=== PATIENT | male | born 1985 | race Caucasian/White ===

== ENCOUNTER 2017-03-15 15:13 | Emergency (ER) | payer MEDICAID ==
[~2017-03-15] VITALS: Ht 170.2 cm; Wt 106.6 kg
--- OUTSIDE RECORDS SUMMARY | 2017-03-15 15:26 | External Medical Summary Rpt | CCD ---
Author Author , ARNOLDO MCLAUGHLIN Address Unknown Phone [email or web address] Care Team Providers Care Psychological Examiner Name Role Phone [facility] CLI, TALON Unavailable Unavailable [facility], Unavailable Unavailable [facility] # Unavailable Unavailable 56, [facility] # 56 [facility], Unavailable Unavailable [facility] Unavailable Unavailable [id number] # 0334, [facility] [id number] # 0334 OCTAVIO Jolanta RODRIGUEZ DMD Unavailable Unavailable PSC, OCTAVIO Stover MICHAEL DMD PSC Purpose Continuity of Care Document - 09-04-2009 through 2016 Problems Code Diagnosis DOS Provider Status 2724 OTHER AND 07-24-2014 [facility] HYPERLIPIDE CHERIE 2859 UNSPECIFIED 07-24-2014 [facility] V0951 QUINOLONES- 07-24-2014 [facility] E-MULT RESIST MICROORGAN 92134 BORDERLINE 12-19-2013 [facility] GLAUC OPEN ANGLE BL FINDINGS LOW RSK V6751 F/U EXAM 03-15-2013 [facility] TX W/HIGH-RISK MED NEC 2449 UNSPECIFIED 01-25-2013 [facility] HYPOTHYROID ISM 01858 REFRACTIVE 09-09-2010 [facility] 29882 DENTAL 01-08-2010 OCTAVIO RODRIGUEZ DMD EXTENDING PSC INTO DENTINE 5252 ATROPHY OF 12-02-2009 OCTAVIO RODRIGUEZ DMD ALVEOLAR PSC RIDGE Medications Na ND Rx Da Fi Fi Am Da Di Ph RX Ph St me C No te ll ll ou ys ag ar # ys at rm s nt no ma ic us Or Da si cy ia de te s n re d FL 00 09 11 30 30 00 Ge Ac UO 09 -1 -0 .0 00 no ti XE 37 8- 3- 00 00 a, ve TI 19 20 20 14 a NE 80 17 17 83 5 99 Qo HC L L He 40 al th MG ca re CA PS Co UL mp E an y LL C LA 63 09 11 30 30 00 Ge Ac TU 40 -1 -0 .0 00 no ti DA 20 9- 3- 00 00 a, ve 30 20 20 14 a 80 83 17 17 83 0 97 Qo MG L He TA al BL th ET ca re Co mp an y LL C OH 00 09 10 30 30 00 HE Ac AV 09 -2 -2 .0 00 AL ti 37 6- 0- 00 06 TH ve TA 20 20 20 37 FI TI 11 17 17 50 RS N 0 54 T SO BL DI UE UM GR 20 S PH MG AR MA TA CY B NA 53 09 09 30 15 00 HE Ac OH 74 -0 -2 .0 00 AL ti OX 60 1- 9- 06 TH ve EN 19 20 20 37 FI 40 17 17 95 RS SO 1 52 T DI BL UM UE GR 55 0 S MG PH AR TA MA B CY OH 00 09 09 30 30 00 HE Ac OP 60 -0 -2 .0 00 AL ti RA 35 1- 9- 06 TH ve NO 48 20 20 37 FI LO 32 17 17 95 RS L 1 54 T 20 BL UE MG GR TA S BL PH ET AR MA CY FL 00 08 09 30 30 00 GE Ac UO 09 -1 -1 .0 00 NO ti XE 37 8- 5- 00 00 A ve TI 19 20 20 14 HE NE 80 17 17 69 AL 5 73 TH HC CA L RE 40 MG CA PS UL E OH 00 08 09 30 30 00 HE Ac AV 09 -1 -0 .0 00 AL ti 37 4- 8- 06 TH ve TA 20 20 20 37 FI TI 11 17 17 50 RS N 0 54 T SO BL DI UE UM GR 20 S PH MG AR MA TA CY B LA 63 07 08 30 30 00 GE Ac TU 40 -2 -2 .0 00 NO ti DA 20 7- 5- 00 00 A ve 30 20 20 14 HE 40 43 17 17 69 AL 0 69 TH MG CA RE TA BL ET FL 00 07 08 30 30 00 GE Ac UO 09 -1 -1 .0 00 NO ti XE 37 2- 1- 00 00 A ve TI 19 20 20 14 HE NE 80 17 17 48 AL 5 92 TH HC CA L RE 40 MG CA PS UL E GN 87 07 08 60 30 00 HE Ac P 70 -1 -1 .0 00 AL ti FI 10 8- 1- 00 06 TH ve SH 40 20 20 37 FI 81 17 17 50 RS OI 8 58 T L BL EC UE GR 1, 00 S 0 PH MG AR MA SF CY TG L FL 65 07 08 30 30 00 GE Ac UO 86 -1 -0 .0 00 NO ti XE 20 2- 4- 00 00 A ve TI 19 20 20 14 HE NE 39 17 17 48 AL 9 91 TH HC CA L RE 20 MG CA PS UL E OH 00 07 07 30 30 00 HE Ac AV 09 -0 -2 .0 00 AL ti 37 3- 8- 00 06 TH ve TA 20 20 20 37 FI TI 11 17 17 50 RS N 0 54 T SO BL DI UE UM GR 20 S PH MG AR MA TA CY B LA 63 06 07 30 30 00 GE Ac TU 40 -1 -0 .0 00 NO ti DA 20 3- 7- 00 00 A ve 30 20 20 14 HE 40 43 17 17 48 AL 0 93 TH MG CA RE TA BL ET FL 00 06 07 30 30 00 GE UO 09 -1 -0 .0 00 NO ti XE 37 3- 7- 00 00 A ve TI 19 20 20 14 HE NE 80 17 17 48 AL 5 92 TH HC CA L RE 40 MG CA PS UL E CE 68 05 06 28 7 00 KR Ac PH 18 -2 -2 .0 00 OG ti AL 00 7- 3- 00 06 ER ve EX 12 20 20 92 IN 20 17 17 03 PH 2 77 AR 50 MA 0 CY MG L- CA 35 PS 9 UL E OH 00 05 06 30 30 00 HE Ac AV 09 -3 -2 .0 00 AL ti 37 0- 3- 00 06 TH ve TA 20 20 20 37 FI TI 11 17 17 50 RS N 0 54 T SO BL DI UE UM GR 20 S PH MG AR MA TA CY B GN 87 05 06 60 30 00 HE Ac P 70 -3 -2 .0 00 AL ti FI 10 0- 3- 00 06 TH ve SH 40 20 20 37 FI 81 17 17 50 RS OI 8 58 T L BL EC UE GR 1, 00 S 0 PH MG AR MA SF CY TG L NI 43 05 06 28 28 00 HE Ac CO 59 -3 -2 .0 00 AL ti TI 80 0- 3- 00 06 TH ve NE 44 20 20 37 FI 87 17 17 50 RS 21 4 60 T BL MG UE /2 GR 4H R S PA PH TC AR H MA CY 64 05 06 3. 21 00 GE Ac T 38 -1 -1 00 00 NO ti D2 00 8- 6- 0 00 A ve 73 20 20 14 HE 1. 70 17 17 26 AL 25 6 24 TH CA MG RE (5 0, 00 0 UN IT ) PA 10 05 06 30 30 00 GE Ac LI 14 -0 -0 .0 00 NO ti PE 70 8- 2- 00 00 A ve RI 95 20 20 14 HE DO 30 17 17 13 AL NE 3 75 TH CA ER RE 6 MG TA BL ET FL 00 05 06 30 30 00 GE Ac UO 78 -0 -0 .0 00 NO ti XE 12 8- 2- 00 00 A ve TI 82 20 20 14 HE NE 21 17 17 13 AL 0 73 TH HC CA L RE 20 MG CA PS UL E 64 04 05 4. 30 00 GE Ac T 38 -2 -1 00 00 NO ti D2 00 5- 9- 0 00 A ve 73 20 20 14 HE 1. 70 17 17 26 AL 25 6 24 TH CA MG RE (5 0, 00 0 UN IT ) FL 00 04 05 30 30 00 GE Ac UO 78 -0 -0 .0 00 NO ti XE 12 7- 5- 00 00 A ve TI 82 20 20 14 HE NE 21 17 17 13 AL 0 73 TH HC CA L RE 20 MG CA PS UL E PA 10 04 05 30 30 00 GE Ac LI 14 -0 -0 .0 00 NO ti PE 70 7- 5- 00 00 A ve RI 95 20 20 14 HE DO 30 17 17 13 AL NE 3 75 TH CA ER RE 6 MG TA BL ET PA 10 03 03 30 30 00 GE Ac LI 14 -0 -3 .0 00 NO ti PE 70 8- 1- 00 00 A ve RI 95 20 20 13 HE DO 30 17 17 95 AL NE 3 90 TH CA ER RE 6 MG TA BL ET FL 00 03 03 30 30 00 GE Ac UO 09 -0 -3 .0 00 NO ti XE 37 8- 1- 00 00 A ve TI 19 20 20 13 HE NE 80 17 17 95 AL 5 92 TH HC CA L RE 40 MG CA PS UL E FL 00 02 03 30 30 00 GE Ac UO 78 -0 -0 .0 00 NO ti XE 12 6- 3- 00 00 A ve TI 82 20 20 13 HE NE 21 17 17 69 AL 0 54 TH HC CA L RE 20 MG CA PS UL E PA 10 02 03 30 30 00 GE Ac LI 14 -0 -0 .0 00 NO ti PE 70 6- 3- 00 00 A ve RI 95 20 20 13 HE DO 20 17 17 69 AL NE 3 51 TH CA ER RE 3 MG TA BL ET PA 10 01 02 30 30 00 GE Ac LI 14 -0 -0 .0 00 NO ti PE 70 6- 3- 00 00 A ve RI 95 20 20 13 HE DO 20 17 17 69 AL NE 3 51 TH CA ER RE 3 MG TA BL ET FL 00 01 02 30 30 00 GE Ac UO 09 -0 -0 .0 00 NO ti XE 37 6- 3- 00 00 A ve TI 19 20 20 13 HE NE 80 17 17 69 AL 5 53 TH HC CA L RE 40 MG CA PS UL E ZY 00 10 10 0 30 30 GE 59 YO Ac OH 00 -0 -0 .0 NO 03 UN ti EX 24 4- 4- 00 A 9 G ve A 11 20 20 HE DE 10 73 11 11 AL LE 0 TH NA MG CA RE TA # BL ET 56 68 10 10 0 60 30 GE 58 YO Ac 18 -0 -0 .0 NO 04 UN ti 00 4- 4- 00 A 0 G ve 26 20 20 HE DE 70 11 11 AL LE 2 TH NA CA RE # 56 68 09 09 0 60 30 GE 56 YO Ac 18 -0 -0 .0 NO 87 UN ti 00 6- 6- 00 A 4 G ve 26 20 20 HE DE 70 11 11 AL LE 2 TH NA CA RE # 56 ZY 00 09 09 0 30 30 GE 56 YO Ac OH 00 -0 -0 .0 NO 87 UN ti EX 24 6- 6- 00 A 5 G ve A 11 20 20 HE DE 10 73 11 11 AL LE 0 TH NA MG CA RE TA # BL ET 56 SE 00 08 08 30 30 RI 78 YO Ac RO 31 -0 -0 .0 TE 86 UN ti QU 00 2- 2- 00 66 G ve EL 28 20 20 AI DE 46 11 11 D LE XR 0 PH NA AR 40 MA 0 CY MG 03 TA 34 BL 7 ET # 03 34 DI 68 08 08 2 60 30 RI 78 YO Ac VA 38 -0 -0 .0 TE 86 UN ti LP 20 2- 2- 00 67 G ve RO 03 20 20 AI DE EX 30 11 11 D LE 1 PH NA SO AR D MA DR CY 50 03 0 34 MG 7 # TA 03 B 34 SE 00 07 07 0 30 30 GE 55 YO Ac RO 31 -1 -1 .0 NO 00 UN ti QU 00 9- 9- 00 A 8 G ve EL 28 20 20 HE DE 36 11 11 AL LE XR 0 TH NA CA 30 RE 0 # MG 56 TA BL ET SE 00 07 07 0 60 30 GE 54 YO Ac RO 31 -0 -0 .0 NO 41 UN ti QU 00 5- 5- 00 A 7 G ve EL 27 20 20 HE DE 11 11 11 AL LE 10 0 TH NA 0 CA MG RE # TA BL 56 ET 68 07 07 0 60 30 GE 54 YO Ac 18 -0 -0 .0 NO 41 UN ti 00 5- 5- 00 A 6 G ve 26 20 20 HE DE 70 11 11 AL LE 2 TH NA CA RE # 56 SE 00 01 05 2 30 30 RI 76 SA Ac RO 31 -2 -1 .0 TE 16 ND ti QU 00 4- 6- 00 12 ER ve EL 28 20 20 AI S 36 11 11 D CA XR 0 PH RL AR A 30 MA L 0 CY MG 03 TA 34 BL 7 ET # 03 34 LI 68 01 05 2 60 30 RI 77 SA Ac TH 46 -1 -1 .0 TE 05 ND ti IU 20 4- 6- 00 04 ER ve M 22 20 20 AI S CA 20 11 11 D CA RB 1 PH RL ON AR A AT MA L E CY 60 0 03 MG 34 7 CA # P 03 34 LI 00 01 03 2 60 30 RI 77 SA Ac TH 05 -1 -2 .0 TE 05 ND ti IU 42 4- 5- 00 04 ER ve M 53 20 20 AI S CA 12 11 11 D CA RB 5 PH RL ON AR A AT MA L E CY 60 0 03 MG 34 7 CA # P 03 34 SE 00 01 03 2 30 30 RI 76 SA Ac RO 31 -2 -2 .0 TE 16 ND ti QU 00 4- 5- 12 ER ve EL 28 20 20 AI S 36 11 11 D CA XR 0 PH RL AR A 30 MA L 0 CY MG 03 TA 34 BL 7 ET # 03 34 LI 68 01 01 2 60 30 RI 76 SA Ac TH 46 -1 -2 .0 TE 16 ND ti IU 20 4- 5- 00 10 ER ve M 22 20 20 AI S CA 20 11 11 D CA RB 1 PH RL ON AR A AT MA L E CY 60 0 03 MG 34 7 CA # P 03 34 SE 00 01 01 2 30 30 RI 76 SA Ac RO 31 -2 -2 .0 TE 16 ND ti QU 00 - 4 00 12 ER ve EL 28 20 20 AI S 36 11 11 D CA XR 0 PH RL AR A 30 MA L 0 CY MG 03 TA 34 BL 7 ET # 03 34 SE 00 11 12 2 30 30 RI 75 SA Ac RO 31 -1 -2 .0 TE 32 ND ti QU 00 49 ER ve EL 28 20 20 AI S 36 10 10 D CA XR 0 PH RL AR A 30 MA L 0 CY MG 03 TA 34 BL 7 ET # 03 34 LI 00 11 12 1 60 30 RI 75 SA Ac TH 05 -1 -2 .0 TE 32 ND ti IU 42 9- 0- 00 48 ER ve M 53 20 20 AI S CA 12 10 10 D CA RB 5 PH RL ON AR A AT MA L E CY 60 0 03 MG 34 7 CA # P 03 34 LI 00 11 11 1 60 30 RI 75 SA Ac TH 05 -1 -1 .0 TE 32 ND ti IU 42 48 ER ve M 53 20 20 AI S CA 12 10 10 D CA RB 5 PH RL ON AR A AT MA L E CY 60 0 03 MG 34 7 CA # P 03 34 SE 00 11 11 2 30 30 RI 75 SA Ac RO 31 -1 -1 .0 TE 32 ND ti QU 00 49 ER ve EL 28 20 20 AI S 36 10 10 D CA XR 0 PH RL AR A 30 MA L 0 CY MG 03 TA 34 BL 7 ET # 03 34 SE 00 08 10 2 30 30 RI 73 SA Ac RO 31 -1 -1 .0 TE 93 ND ti QU 00 2 16 ER ve EL 28 20 20 AI S 16 10 10 D CA XR 0 PH RL AR A 15 MA L 0 CY MG 03 TA 34 BL 7 ET # 03 34 LI 00 08 10 2 60 30 RI 73 SA Ac TH 05 -1 -1 .0 TE 93 ND ti IU 40 3- 2- 00 17 ER ve M 02 20 20 AI S CA 12 10 10 D CA RB 5 PH RL ON AR A AT MA L E CY ER 03 30 34 0 7 MG # 03 TB 34 53 10 10 30 5 RI 74 MO Ac 74 -0 -0 .0 TE 61 RR ti 60 37 IS ve 11 20 20 AI 90 10 10 D RO 1 PH BE AR RT MA H CY 03 34 7 # 03 34 53 10 10 30 5 RI 74 MO Ac 74 -0 -0 .0 TE 61 RR ti 60 1- 1- 00 37 IS ve 11 20 20 AI 90 10 10 D RO 1 PH BE AR RT MA CY 03 34 7 # 03 34 SE 00 08 09 2 30 30 RI 73 SA Ac RO 31 -1 -1 .0 TE 93 ND ti QU 00 3- 3- 00 16 ER ve EL 28 20 20 AI S 16 10 10 D CA XR 0 PH RL AR A 15 MA L 0 CY MG 03 TA 34 BL 7 ET # 03 34 LI 00 08 09 2 60 30 RI 73 SA Ac TH 05 -1 -1 .0 TE 93 ND ti IU 40 3- 3- 00 17 ER ve M 02 20 20 AI S CA 12 10 10 D CA RB 5 PH RL ON AR A AT MA L E CY ER 03 30 34 0 7 MG # 03 TB 34 00 08 08 24 4 RI 74 GR Ac 40 -2 -2 .0 TE 09 AY ti 60 5- 5- 00 46 , ve 36 20 20 AI II 30 10 10 D I 5 PH GRICELDA AR HN MA I CY 03 34 7 # 03 34 00 08 08 24 4 RI 74 GR Ac 40 -2 -2 .0 TE 09 AY ti 60 5- 5- 00 46 ve 36 20 20 AI II 30 10 10 D I 5 PH GRICELDA AR HN MA I CY 03 34 7 # 03 34 SE 00 08 08 2 30 30 RI 73 SA Ac RO 31 -1 -1 .0 TE 93 ND ti QU 00 3- 3- 00 16 ER ve EL 28 20 20 AI S 16 10 10 D CA XR 0 PH RL AR A 15 MA L 0 CY MG 03 TA 34 BL 7 ET # 03 34 LI 00 08 08 2 60 30 RI 73 SA Ac TH 05 -1 -1 .0 TE 93 ND ti IU 40 3- 3- 00 17 ER ve M 02 20 20 AI S CA 12 10 10 D CA RB 5 PH RL ON AR A AT MA L E CY ER 03 30 34 0 7 MG # 03 TB 34 53 07 07 24 4 RI 73 GR Ac 74 -2 -2 .0 TE 70 AY ti 60 8- 8- 00 96 ve 11 20 20 AI II 90 10 10 D I 1 PH GRICELDA AR HN MA I CY 03 34 7 # 03 34 53 07 07 24 4 RI 73 GR Ac 74 -2 -2 .0 TE 70 AY ti 60 8- 8- 00 96 , ve 11 20 20 AI II 90 10 10 D I 1 PH GRICELDA AR HN MA I CY 03 34 7 # 03 34 00 07 07 12 2 RI 73 ZH Ac 60 -2 -2 .0 TE 68 AN ti 33 6- 6- 00 26 G ve 88 20 20 AI JI 12 10 10 D NG 8 PH -J AR IN MA G CY 03 34 7 # 03 34 LI 00 05 07 2 60 30 RI 72 SA Ac TH 05 -2 -2 .0 TE 93 ND ti IU 42 8- 4- 00 57 ER ve M 52 20 20 AI S CA 72 10 10 D CA RB 5 PH RL ON AR A AT MA L E CY 30 0 03 MG 34 7 CA # P 03 34 LI 00 05 06 2 60 30 RI 72 SA Ac TH 05 -2 -2 .0 TE 93 ND ti IU 42 8- 3- 00 57 ER ve M 52 20 20 AI S CA 72 10 10 D CA RB 5 PH RL ON AR A AT MA L E CY 30 0 03 MG 34 7 CA # P 03 34 RI 00 05 06 2 60 30 RI 72 SA Ac SP 09 -2 -2 .0 TE 93 ND ti ER 37 8- 3- 00 58 ER ve ID 24 20 20 AI S ON 00 10 10 D CA E 6 PH RL 1 AR A MG MA L CY TA BL 03 ET 34 7 # 03 34 LI 00 05 05 2 60 30 RI 72 SA Ac TH 05 -2 -2 .0 TE 93 ND ti IU 42 8- 8- 00 57 ER ve M 52 20 20 AI S CA 72 10 10 D CA RB 5 PH RL ON AR A AT MA L E CY 30 0 03 MG 34 7 CA # P 03 34 RI 00 05 05 2 60 30 RI 72 SA Ac SP 09 -2 -2 .0 TE 93 ND ti ER 37 8- 8- 00 58 ER ve ID 24 20 20 AI S ON 00 10 10 D CA E 6 PH RL 1 AR A MG MA L CY TA BL 03 ET 34 7 # 03 34
--- OUTSIDE RECORDS SUMMARY | 2017-03-15 15:26 | External Medical Summary Rpt | CCD ---
Author Author , ARNOLDO MCLAUGHLIN Address Unknown Phone [email or web address] Care Team Providers Care Real Estate Analyst Name Role Phone [facility] CLI, TALON Unavailable [facility]available [facility], Unavailable Unavailable [facility] # Unavailable Unavailable 56, [facility] # 56 [facility], Unavailable Unavailable [facility] Unavailable Unavailable [id number] # 0334, [facility] [id number] # 0334 OCTAVIO Jolanta RODRIGUEZ DMD Unavailable Unavailable PSC, OCTAVIO Stover MICHAEL DMD PSC Purpose Continuity of Care Document - 09-04-2009 through 2016 Problems Code Diagnosis DOS Provider Status 2724 OTHER AND 07-24-2014 [facility] HYPERLIPIDE CHERIE 2859 UNSPECIFIED 07-24-2014 [facility] V0951 QUINOLONES- 07-24-2014 [facility] E-MULT RESIST MICROORGAN 54277 BORDERLINE 12-19-2013 [facility] GLAUC OPEN ANGLE BL FINDINGS LOW RSK V6751 F/U EXAM 03-15-2013 [facility] TX W/HIGH-RISK MED NEC 2449 UNSPECIFIED 01-25-2013 [facility] HYPOTHYROID ISM 53877 REFRACTIVE 09-09-2010 [facility] 24068 DENTAL 01-08-2010 OCTAVIO RODRIGUEZ DMD EXTENDING PSC [...] re Co mp an y LL C ND 00 09 10 30 30 00 HE Ac AV 09 -2 -2 .0 00 AL ti 37 6- 0- 00 06 TH ve TA 20 20 20 37 FI TI 11 17 17 50 RS N 0 54 T SO BL DI UE UM GR 20 S PH MG AR MA TA CY B NA 53 09 09 30 15 00 HE Ac ND 74 -0 -2 .0 00 AL ti OX 60 1- 9- 06 TH ve EN 19 20 20 37 FI 40 17 17 95 RS SO 1 52 T DI BL UM UE GR 55 0 S MG PH AR TA MA B CY ND 00 09 09 30 30 00 HE [...] RE 40 MG CA PS UL E ND 00 08 09 30 30 00 HE [...] RE 20 MG CA PS UL E ND 00 07 07 30 30 00 HE [...] L- CA 35 PS 9 UL E ND 00 05 06 30 30 00 HE [...] 0 30 30 GE 59 YO Ac ND 00 -0 -0 .0 NO 03 UN [...] 0 30 30 GE 57 YO Ac ND 00 -0 -0 .0 NO 87 UN [...]
--- OUTSIDE RECORDS SUMMARY | 2017-03-15 15:28 | External Medical Summary Rpt | CCD ---
Author Author , ARNOLDO LEALROSETTA Address Unknown Phone [email or web address] Care Team Providers Care Legal Billing Specialist Name Role Phone TALON CLI, TALON Unavailable Unavailable [facility], Unavailable Unavailable [facility] # Unavailable Unavailable 56, [facility] # 56 [facility], Unavailable Unavailable [facility] Unavailable Unavailable [id number] # 0334, [facility] [id number] # 0334 OCTAVIO RODRIGUEZ DMD Unavailable Unavailable PSC, OCTAVIO RODRIGUEZ DMD PSC Purpose Continuity of Care Document - 09-04-2009 through 2016 Problems Code Diagnosis DOS Provider Status 2724 OTHER AND 07-24-2014 [facility] HYPERLIPIDE CHERIE 2859 UNSPECIFIED 07-24-2014 [facility] V0951 QUINOLONES- 07-24-2014 [facility] E-MULT RESIST MICROORGAN 88085 BORDERLINE 12-19-2013 [facility] GLAUC OPEN ANGLE BL FINDINGS LOW RSK V6751 F/U EXAM 03-15-2013 [facility] TX W/HIGH-RISK MED NEC 2449 UNSPECIFIED 01-25-2013 [facility] HYPOTHYROID ISM 16351 REFRACTIVE 09-09-2010 [facility] 42208 DENTAL 01-08-2010 OCTAVIO RODRIGUEZ DMD EXTENDING PSC [...] re Co mp an y LL C KS 00 12 18 30 30 00 HE Ac AV 09 -2 -2 .0 00 AL ti 37 6- 0- 00 06 TH ve TA 20 20 20 37 FI TI 11 17 17 50 RS N 0 54 T SO BL DI UE UM GR 20 S PH MG AR MA TA CY B KS 00 12 17 30 30 00 HE Ac OP 60 -0 -2 .0 00 AL ti RA 35 1- 9- 06 TH ve NO 48 20 20 37 FI LO 32 17 17 95 RS L 1 54 T 20 BL UE MG GR TA S BL PH ET AR MA CY NA 53 09 09 30 15 00 HE Ac KS 74 -0 -2 .0 00 AL ti OX 60 1- 9- 06 TH ve EN 19 20 20 37 FI 40 17 17 95 RS SO 1 52 T DI BL UM UE GR 55 0 S MG PH AR TA MA B CY FL 65 08 30 30 00 GE Ac UO 86 -1 -1 .0 00 NO ti XE 20 8- 5- 00 00 A ve TI 19 20 20 14 HE NE 39 17 17 69 AL 9 74 TH HC CA L RE 20 MG CA PS UL E KS 00 09 30 30 00 HE Ac AV 09 -1 -0 .0 00 AL ti 37 4- 8- 00 06 TH ve TA 20 [...] 00 AL ti FI 10 8- 1- 06 TH ve SH 40 20 20 [...] RE 20 MG CA PS UL E KS 00 07 07 30 30 00 HE Ac AV 09 -0 -2 .0 00 AL ti 37 3- 8- 00 06 TH ve TA 20 20 20 37 FI TI 11 17 17 50 RS N 0 54 T SO BL DI UE UM GR 20 S PH MG AR MA TA CY B FL 00 06 07 30 30 00 GE Ac UO 09 -1 -0 .0 00 NO ti XE 37 3- 7- 00 00 A ve TI 19 20 20 14 HE NE 80 17 17 48 AL 5 92 TH HC CA L RE 40 MG CA PS UL E LA 63 06 07 30 30 00 GE Ac TU 40 -1 -0 .0 00 NO ti DA 20 3- 7- 00 00 A ve 30 20 20 14 HE 40 43 17 17 48 AL 0 93 TH MG CA RE TA BL ET CE 68 05 06 28 7 00 KR Ac PH 18 -2 -2 .0 00 OG ti AL 00 7- 3- 00 06 ER ve EX 12 20 20 92 IN 20 17 17 03 PH 2 77 AR 50 MA 0 CY MG L- CA 35 PS 9 UL E KS 00 05 06 30 30 00 HE [...] 00 0 UN IT ) PA 10 04 05 30 30 00 GE Ac LI 14 -0 -0 .0 00 NO ti PE 70 7- 5- 00 00 A ve RI 95 20 20 14 HE DO 30 17 17 13 AL NE 3 75 TH CA ER RE 6 MG TA BL ET FL 00 04 05 30 30 00 GE Ac UO 09 -0 -0 .0 00 NO ti XE 37 7- 5- 00 00 A ve TI 19 20 20 14 HE NE 80 17 17 13 AL 5 74 TH HC CA L RE 40 MG CA PS UL E FL 00 03 03 30 30 00 GE Ac UO 78 -0 -3 .0 00 NO ti XE 12 8- 1- 00 00 A ve TI 82 20 20 13 HE NE 21 17 17 95 AL 0 91 TH HC CA L RE 20 MG CA PS UL E PA 10 03 03 30 30 00 GE Ac LI 14 -0 -3 .0 00 NO ti PE 70 8- 1- 00 00 A ve RI 95 20 20 13 HE DO 30 17 17 95 AL NE 3 90 TH CA ER RE 6 MG TA BL ET FL 00 02 03 30 30 00 GE Ac UO 09 -0 -0 .0 00 NO ti XE 37 6- 3- 00 00 A ve TI 19 20 20 13 HE NE 80 17 17 69 AL 5 53 TH HC CA L RE 40 MG CA PS UL E PA 10 [...] 02 30 30 00 GE Ac UO 78 -0 -0 .0 00 NO ti XE 12 6- 3- 00 00 A ve TI 82 20 20 13 HE NE 21 17 17 69 AL 0 54 TH HC CA L RE 20 MG CA PS UL E PA 10 01 02 30 30 00 GE Ac LI 14 -0 -0 .0 00 NO ti PE 70 6- 3- 00 00 A ve RI 95 20 20 13 HE DO 20 17 17 69 AL NE 3 51 TH CA ER RE 3 MG TA BL ET ZY 00 10 10 0 30 30 GE 59 YO Ac KS 00 -0 -0 .0 NO 03 UN [...] 0 30 30 GE 57 YO Ac KS 00 -0 -0 .0 NO 87 UN ti EX 24 6- 6- 00 A 5 G ve A 11 20 20 HE DE 10 73 11 11 AL LE 0 TH NA MG CA RE TA # BL ET 56 68 09 09 0 60 30 GE 56 YO Ac 18 -0 -0 .0 NO 87 UN ti 00 6- 6- 00 A 4 G ve 26 20 20 HE DE 70 11 11 AL LE 2 TH NA CA RE # 56 DI 68 08 08 2 60 30 RI 78 YO Ac VA 38 -0 -0 .0 TE 86 UN ti LP 20 2- 2- 00 67 G ve RO 03 20 20 AI DE EX 30 11 11 D LE 1 PH NA SO AR D MA DR CY 50 03 0 34 MG 7 # TA 03 B 34 SE 00 08 08 30 30 RI 78 YO Ac RO 31 -0 -0 .0 TE 86 UN ti QU 00 2- 2- 00 66 G ve EL 28 20 20 AI DE 46 11 11 D LE XR 0 PH NA AR 40 MA 0 CY MG 03 TA 34 BL 7 ET # 03 34 SE 00 07 07 0 30 [...] 16 ND ti QU 00 4- 5- 00 12 ER ve EL 28 20 [...] TE 16 ND ti QU 00 4- 4- 00 12 ER ve EL 28 20 20 AI S 36 11 11 D CA XR 0 PH RL AR A 30 MA L 0 CY MG 03 TA 34 BL 7 ET # 03 34 SE 00 11 12 2 30 30 RI 75 SA Ac RO 31 -1 -2 .0 TE 32 ND ti QU 00 9- 1- 00 49 ER ve EL 28 20 [...] ET # 03 34 LI 00 11 11 1 60 30 RI 75 SA Ac TH 05 -1 -1 .0 TE 32 ND ti IU 42 9- 9- 48 ER ve M 53 20 20 AI S CA 12 10 10 D CA RB 5 PH RL ON AR A AT MA L E CY 60 0 03 MG 34 7 CA # P 03 34 LI 00 08 10 2 [...] 0 7 MG # 03 TB 34 SE 00 08 10 2 30 30 RI 73 SA Ac RO 31 -1 -1 .0 TE 93 ND ti QU 00 3- 2- 00 16 ER ve EL 28 20 20 AI S 16 10 10 D CA XR 0 PH RL AR A 15 MA L 0 CY MG 03 TA 34 BL 7 ET # 03 34 53 10 10 30 [...] 34 7 # 03 34 LI 00 08 09 [...] 0 7 MG # 03 TB 34 SE 00 08 09 2 30 30 RI 73 SA Ac RO 31 -1 -1 .0 TE 93 ND ti QU 00 3- 3- 00 16 ER ve EL 28 20 20 AI S 16 10 10 D CA XR 0 PH RL AR A 15 MA L 0 CY MG 03 TA 34 BL 7 ET # 03 34 00 08 08 24 [...] 34 7 # 03 34 LI 00 08 08 [...] 0 7 MG # 03 TB 34 SE 00 08 08 2 30 30 RI 73 SA Ac RO 31 -1 -1 .0 TE 93 ND ti QU 00 3- 3- 00 16 ER ve EL 28 20 20 AI S 16 10 10 D CA XR 0 PH RL AR A 15 MA L 0 CY MG 03 TA 34 BL 7 ET # 03 34 53 07 07 24 [...]
--- OUTSIDE RECORDS SUMMARY | 2017-03-15 15:28 | External Medical Summary Rpt | CCD ---
Author Author , ARNOLDO LEALROSETTA Address Unknown Phone [email or web address] Care Team Providers Care Loom Cleaner Name Role Phone [facility] CLI, TALON Unavailable Unavailable [facility], Unavailable [facility]available [facility] # Unavailable Unavailable 56, [facility] # 56 [facility], Unavailable Unavailable [facility] Unavailable Unavailable [id number] # 0334, [facility] [id number] # 0334 OCTAVIO RODRIGUEZ DMD Unavailable Unavailable PSC, OCTAVIO RODRIGUEZ DMD PSC Purpose Continuity of Care Document - 09-04-2009 through 2016 Problems Code Diagnosis DOS Provider Status 2724 OTHER AND 07-24-2014 [facility] HYPERLIPIDE CHERIE 2859 UNSPECIFIED 07-24-2014 [facility] V0951 [place]INOLONES- 07-24-2014 [facility] E-MULT RESIST MICROORGAN 34484 BORDERLINE 12-19-2013 [facility] CLI GLAUC OPEN ANGLE BL FINDINGS LOW RSK V6751 F/U EXAM 03-15-2013 [facility] TX W/HIGH-RISK MED NEC 2449 UNSPECIFIED 01-25-2013 [facility] HYPOTHYROID ISM 34207 REFRACTIVE 09-09-2010 [facility] 73091 DENTAL 01-08-2010 OCTAVIO RODRIGUEZ DMD EXTENDING PSC [...] re Co mp an y LL C AZ 00 12 18 30 30 00 HE Ac AV 09 -2 -2 .0 00 AL ti 37 6- 0- 00 06 TH ve TA 20 20 20 37 FI TI 11 17 17 50 RS N 0 54 T SO BL DI UE UM GR 20 S PH MG AR MA TA CY B AZ 00 12 17 30 30 00 HE Ac OP 60 -0 -2 .0 00 AL ti RA 35 1- 9- 06 TH ve NO 48 20 20 37 FI LO 32 17 17 95 RS L 1 54 T 20 BL UE MG GR TA S BL PH ET AR MA CY NA 53 09 09 30 15 00 HE Ac AZ 74 -0 -2 .0 00 AL ti [...] RE 20 MG CA PS UL E AZ 00 09 30 30 00 HE Ac [...] RE 20 MG CA PS UL E AZ 00 07 07 30 30 00 HE [...] L- CA 35 PS 9 UL E AZ 00 05 06 30 30 00 HE [...] 0 30 30 GE 59 YO Ac AZ 00 -0 -0 .0 NO 03 UN [...] 0 30 30 GE 57 YO Ac AZ 00 -0 -0 .0 NO 87 UN [...]
--- OUTSIDE RECORDS SUMMARY | 2017-03-15 15:29 | External Medical Summary Rpt | CCD ---
Author Author , ARNOLDO MCLAUGHLIN Address Unknown Phone [email or web address] Immunization Name Date Rout CVX Reac Dose Comm Prov Is Faci e tion ent ider Refu lity Give sed n MMR 09- 3 999 Hist H125 No H125 07-27 oric 98 al Info rmat ion - Sour ce Unsp ecif ied Td 09 9 999 Hist H125 No H125 (kiel 07-27 oric lt), 98 al Info adso rmat rbed ion - Sour ce Unsp ecif ied
--- OUTSIDE RECORDS SUMMARY | 2017-03-15 15:29 | External Medical Summary Rpt ---
Author Author ARNOLDO Lee, [employer] Organization [employer] Address Unknown Phone Unavailable
--- OUTSIDE RECORDS SUMMARY | 2017-03-15 15:29 | External Medical Summary Rpt | CCD ---
Author Author , ARNOLDO MCLAUGHLIN Address Unknown Phone [email or web address] Immunization Name Date Rout CVX Reac Dose [...]
--- NOTE | 2017-03-15 15:50 | [facility]gent [facility] Report ---
History of Present Issue Date/Time Seen by Provider 03/15/17 1525 Visit Reason Pt arrived:Walked Presenting Problem:BILATERAL HEARING LOSS AND PAIN X 4 DAYS Location if Accident: Onset of symptoms date/time:/ or onset unknown for:MEDICAL HX UNKNOWN Have you (or family members/close friends) recently traveled outside the [place]? N If Yes, where/when: Have you had exposure to infectious disease within the past month? TB? Other? Specify: c/o complete hearing loss left hear and decreased hearing w/ pain right ear x 3- 4 days. Denies ear drainage. No fever. Hasn't taken or tried anything. Denies URI/cold symptoms. "Just my ears". No recent trauma. Source patient Exam Limitations no limitations ALLERGIES Coded Allergies: No Known Allergies (03/15/17) Home Medications Reported Medications No Known Home Medications History Medical History General CAD? No Angina: No [place]: No Hypertension? No Hyperlipidemia? No CHF? No DVT? No PE? No Asthma? No Anemia? No GERD? No Gastric ulcers? No GI Bleed? No Hernia? No Thyroid Problems? No Hypothyroidism? No CVA? No Seizures? No Diabetes? No Renal Insuffiency? No UTI? No Stones? No BPH? No GB Disease: No Nephritic Syndrome? No Asplenia? No Hepatitis? No Sickle Cell Disease? No Arthritis? No Migraines? No Cataracts? No Glaucoma? No MRSA? No HIV? No TB? No Anxiety? No Depression? No Cancer? No Site: N More? No Immunization HX DT/Tetanus Unknown Surgical Hx Previous Surgery?N Social History Smoking Hx Smoker: Current Every Day Smoker Tobacco: Yes Type Cigarettes Packs/day 1 1/2 - 2 Packs Alcohol Alcohol: No Review of Systems All Other Systems Reviewed and Negative Constitutional see HPI, denies malaise Eyes denies pain, denies vision change ENT see HPI. Respiratory denies cough Gastrointestinal denies nausea, denies vomiting Musculoskeletal denies neck pain Skin denies lesions, denies lumps, denies rash Psychiatric/Neurological denies headache, denies other (dizziness) Physical Exam Vital Signs Vital Signs Date Time Temp Pulse Resp B/P Pulse O2 O2 Flow FiO2 Ox Delivery Rate 03/15 1524 98.0 78 20 134/96 96 General Appearance no apparent distress, obese, foul body odor Eye Exam - bilateral eye normal exam Ear, Nose, Throat kev EACs full of impacted cerumen completely blocking view of inner ear, nares and pharynx unremarkable Neck non-tender, supple Respiratory Status No: respiratory distress. Cardiovascular no peripheral edema Neurologic alert, oriented x 3 Lymphatic no adenopathy Medical Decision Making LABS/Meds/Orders Pt receiving controlled substance in ED? No Procedures General/Other Procedure [facility] Procedure Note Date 03/15/17 Time 1535 - Very large amounts of dark cerumen easily removed from kev EACs. Patient tolerated procedure well. Currette necessary for left ear only. Otherwise, elephant ear wash w/ soap and warm water used. After irrigation, kev EACs slightly erythematous. TM pearly pink, intact, nontender. Pt had immediate improvement in hearing and pain. Departure Departure Time of Disposition 1606 Disposition DC Home or Self Care(routine) Clinical Impression Primary Impression: Bilateral impacted cerumen Condition STABLE Referrals NO REFERRAL Wax removed. Follow up as needed. Patient Instructions DI for Cerumen Impaction Additional Instructions Wax removed. Hearing back to baseline. Follow up if symptoms return Do not use cotton swabs in your ears Discharge Counseling Counseled pt/family regarding diagnosis, home care, follow up needs Prescriptions Current Visit Scripts No Known Home Medications at 1608
[2017-03-15 16:08] VITALS: BP 134/96
== END 2017-03-15 16:09 | disposition home or self-care (01) ==
LOC: UTC 15:13 → ER 15:23 → UTC 16:09
PROC: 09C47ZZ Extirpation of Matter from Left External Auditory Canal, Via Natural or Artificial Opening (ICD-10-PCS; principal; 2017-03-15)
DX: H61.23 Impacted cerumen, bilateral (principal)